=== PATIENT | male | born 1950 | race Two or more races ===

== ENCOUNTER 2020-04-09 22:03 | Inpatient (IN) | payer OTHER, MEDICAID ==
[~2020-04-09] VITALS: Ht 172.7 cm; Wt 68.2 kg
[2020-04-09 23:14] LABS: Basophils # (auto) 0.1 10 ^3/uL (0-0.2); Eosinophils # (auto) 0.5 10 ^3/uL (0-0.8); Eosinophils % (auto) 5.3 % (0.0-7.0); Hematocrit 44.1 % (41.0-53.0); Hemoglobin 14.1 g/dL (13.5-17.5); Lymphocytes # (auto) 1.1 10 ^3/uL (0.4-5.4); Lymphocytes % (auto) 12.5 % (10.0-50.0); Mean Corpuscular Hemoglobin 27.1 pg (28.0-32.0); Mean Corpuscular Hgb Conc. 32.1 g/dL (32.0-36.0); Mean Corpuscular Volume 84.6 fL (80.0-100.0); Monocytes # (auto) 0.5 10 ^3/uL (0-1.3); Neutrophils # (auto) 6.6 10 ^3/uL (1.6-8.6); Neutrophils % (auto) 75.2 % (37.0-80.0); Nucleated Red Blood Cells % 0.1 %; Platelet Count (auto) 204 10^3/uL (140-450); Red Blood Cells 5.21 10^6/uL (4.5-5.90); Red Cell Distribution Width 15.2 % (11.8-14.3); White Blood Cell 8.7 10^3/uL (4.4-10.8)
[2020-04-09 23:36] LABS: Chloride 109 mmol/L (98-107); Potassium 3.6 mmol/L (3.5-5.1); Sodium 140 mmol/L (136-145)
[2020-04-09 23:39] LABS: INR 1.04 (0.9-1.15); Partial Thromboplastin Time 25.4 sec (23.0-31.2)
[2020-04-09 23:41] LABS: Albumin 3.6 g/dL (3.4-5.0); Anion Gap 6 (5-15); BUN/Creatinine Ratio 18.3; Blood Urea Nitrogen 21 mg/dL (7-18); Calcium 8.6 mg/dL (8.5-10.1); Carbon Dioxide 25 mmol/L (21-32); GFR African American 82 mL/min; GFR Non-African American 67 mL/min; Glucose 114 mg/dL (74-106)
[2020-04-09 23:46] LABS: Alanine Aminotransferase 33 U/L (16-61); Alkaline Phosphatase 63 U/L (45-117); Aspartate Aminotransferase 21 U/L (15-37); Bilirubin, Total 0.6 mg/dL (0.2-1.0); Total Protein 7.1 g/dL (6.4-8.2)
[2020-04-10] MEDS ORDERED: DOCUSATE SOD 100 MG CAP PO PRN (04:15)
[2020-04-10] MEDS ORDERED: ACETAMINOPHEN 325 MG TAB PO PRN (04:15)
[2020-04-10] MEDS ORDERED: HYDROcodone-ACET 5/325MG TAB PO PRN (04:15)
[2020-04-10] MEDS ORDERED: NITROGLYCERIN 0.4 MG SL TAB SL PRN (04:15)
[2020-04-10] MEDS ORDERED: ONDANSETRON HCL 4 MG/2 ML VIAL IV PRN (04:15)
[2020-04-10] MEDS ORDERED: MORPHINE SULF INJ 2 MG/ML SYRINGE 1ML IV PRN ×2 (04:15→15:00)
[2020-04-10] MEDS ORDERED: MORPHINE SULFATE 4 MG/ML SYR/VIAL IV PRN (04:15)
[2020-04-10] MEDS: SODIUM CHLOR 0.9% PF (SALINE LOCK) 10ML VIAL/SYR IV SCH ×3 (06:00→22:00)
[2020-04-10 06:21] LABS: Basophils # (auto) 0.1 10 ^3/uL (0-0.2); Eosinophils # (auto) 0.1 10 ^3/uL (0-0.8); Monocytes # (auto) 0.6 10 ^3/uL (0-1.3)
[2020-04-10 06:24] LABS: Eosinophils % (auto) 1.6 % (0.0-7.0); Hematocrit 42.6 % (41.0-53.0); Lymphocytes % (auto) 11.8 % (10.0-50.0); Mean Corpuscular Hemoglobin 27.1 pg (28.0-32.0); Mean Corpuscular Hgb Conc. 32.8 g/dL (32.0-36.0); Mean Corpuscular Volume 82.7 fL (80.0-100.0); Monocytes % (auto) 7.1 % (0.0-12.0); Neutrophils # (auto) 6.5 10 ^3/uL (1.6-8.6); Neutrophils % (auto) 78.5 % (37.0-80.0); Platelet Count (auto) 215 10^3/uL (140-450); Red Blood Cells 5.15 10^6/uL (4.5-5.90); Red Cell Distribution Width 14.8 % (11.8-14.3); White Blood Cell 8.2 10^3/uL (4.4-10.8)
[2020-04-10 06:46] LABS: Albumin 3.5 g/dL (3.4-5.0); Calcium 9.1 mg/dL (8.5-10.1); Potassium 4.3 mmol/L (3.5-5.1)
[2020-04-10 06:52] LABS: BUN/Creatinine Ratio 21.5; Bilirubin, Total 0.6 mg/dL (0.2-1.0); Total Protein 6.7 g/dL (6.4-8.2)
[2020-04-10] MEDS ORDERED: MULTIPLE VITAMIN TAB PO SCH (10:00)
[2020-04-10] MEDS ORDERED: ENOXAPARIN SOD 40 MG/0.4 ML SYRINGE SC SCH (10:00)
[2020-04-10] MEDS ORDERED: ZINC SULFATE 220mg CAP or TAB PO SCH (10:00)
[2020-04-10] MEDS ORDERED: ASCORBIC ACID 500 MG TAB PO SCH (10:00)
[2020-04-10] MEDS: FAMOTIDINE 20 MG TAB PO SCH ×2 (11:08→23:27)
--- NOTE | 2020-04-10 14:42 | NUR ---
Telemetry admit from ER [facility] admitted to Telemetry unit after SBAR received. Patient oriented to Melly Wilson primary RN, unit, room, bed, and unit policies regarding patient care and visiting hours. Patient now on continuous telemetry monitoring, tele box #36 and telemetry reading on arrival to unit is SR. Instructed patient on POC, fall precautions and to call for assistance as needed. patient verbalized understanding. Fall precautions in place with call light within reach.
[2020-04-10 17:04] VITALS: BP 151/76
[2020-04-10 18:28] VITALS: BP 148/80
--- NOTE | 2020-04-10 18:59 | NUR ---
Closing note Patient resting in bed with even and unlabored respirations on room air, no distress noted. Fall precautions in place with call light within reach; bed alarm on for safety.
--- NOTE | 2020-04-10 19:13 | NUR ---
Care endorsed to JO ANN Tran.
--- NOTE | 2020-04-10 20:00 | NUR ---
Opening Shift Note Assumed care of patient, awake and alert. No S/S of distress/SOB or pain. Instructed on POC and to call for assist PRN, will continue to monitor for changes Q1hr and PRN. Bed in low position. Call light in reach.
[2020-04-10 22:00] VITALS: BP 134/83
[2020-04-10] MEDS ORDERED: LORazepam 2MG/ML-1ML VIAL IV PRN (22:30)
--- NOTE | 2020-04-10 23:00 | NUR ---
Dr. Vegas at patient's bedside. Patient's daughter called and states she and her family are from [place]. She needs to return to work and needs her father discharged by tomorrow. Per Dr. Vegas, patient needs to be further evaluated by [facility] before he is released. Daughter states she will be here tomorrow to discuss taking her father AMA to catch an airline flight back to [place].
[2020-04-11 04:34] VITALS: BP 127/82
[2020-04-11] MEDS: SODIUM CHLOR 0.9% PF (SALINE LOCK) 10ML VIAL/SYR IV SCH (06:00)
[2020-04-11 06:01] LABS: Basophils # (auto) 0.1 10 ^3/uL (0-0.2); Eosinophils # (auto) 0.5 10 ^3/uL (0-0.8); Hemoglobin 14.1 g/dL (13.5-17.5); Lymphocytes # (auto) 1.3 10 ^3/uL (0.4-5.4); Neutrophils # (auto) 4.9 10 ^3/uL (1.6-8.6); Nucleated Red Blood Cells % 0.1 %; Platelet Count (auto) 214 10^3/uL (140-450)
[2020-04-11 06:04] LABS: Potassium 3.7 mmol/L (3.5-5.1)
[2020-04-11 06:06] LABS: Basophils % (auto) 1.1 % (0.0-2.0); Eosinophils % (auto) 6.8 % (0.0-7.0); Hematocrit 42.5 % (41.0-53.0); Lymphocytes % (auto) 17.6 % (10.0-50.0); Mean Corpuscular Hemoglobin 27.3 pg (28.0-32.0); Mean Corpuscular Hgb Conc. 33.1 g/dL (32.0-36.0); Mean Corpuscular Volume 82.4 fL (80.0-100.0); Monocytes # (auto) 0.7 10 ^3/uL (0-1.3); Neutrophils % (auto) 65.5 % (37.0-80.0); Red Blood Cells 5.16 10^6/uL (4.5-5.90); Red Cell Distribution Width 14.7 % (11.8-14.3); White Blood Cell 7.4 10^3/uL (4.4-10.8)
[2020-04-11 06:11] LABS: Albumin 3.4 g/dL (3.4-5.0); BUN/Creatinine Ratio 17.4; Bilirubin, Total 0.7 mg/dL (0.2-1.0); Calcium 8.6 mg/dL (8.5-10.1); Total Protein 6.7 g/dL (6.4-8.2)
--- NOTE | 2020-04-11 07:00 | NUR ---
Patient resting comfortably. No distress. Report given to JO ANN Pickard.
--- NOTE | 2020-04-11 07:50 | NUR ---
Morning note Patient resting in bed with even and unlabored respirations on room air, no distress noted. Instructed patient on POC, fall precautions and to call for assistance as needed. Patient verbalized understanding. fall precautions in place with call light within reach; bed alarm on for safety.
--- NOTE | 2020-04-11 08:05 | NUR ---
RE: activity Bed alarm sounded. Patient attempting to exit bed. Educated patient on the need to contact staff prior to exiting bed d/t high fall risk. Patient verbalized understanding. Patient transferred to [facility] with standby assistance provided by staff member. Patient returned to bed with no complications. Call light within reach; bed alarm on for safety.
--- NOTE | 2020-04-11 08:10 | NUR ---
Family called for update Patient's daughter, Jacqui, called for an update. Password obtain. Update provided. Jacqui stated "We are from [place]. We are flying back home tomorrow morning. I am planning on having him follow up with his primary doctor right when we get back into town." Informed Jacqui patient has not been discharged and is being evaluated by MD's. Jacqui verbalized understanding.
--- NOTE | 2020-04-11 08:43 | NUR ---
RE: AMA Patients daughter is requesting patient be released. Advised Jacqui that patient is not discharged. Patients daughter requesting patient go AMA. This RN spoke with patient. Patient alert & oriented; knows name/, place, situation, year. Patient stated "Yes, I want to go. I'm going to sign the paper and then go back home to [place] to my doctors. I feel fine." Paged Dr. Galeana to notify.
--- NOTE | 2020-04-11 08:48 | NUR ---
Notified Dr. Galeana of patient leaving AJITH BATRES verbalized understanding.
--- NOTE | 2020-04-11 08:59 | NUR ---
RE: AMA Patient has read and signed for leaving the hospital AMA or treatment documentation. Patient has been advised of the risks of leaving AMA. Patient verbalized understanding. Patients daughter, Jacqui, has been advised of the risks of the patient leaving AMA. Jacqui verbalized understanding. IV removed with aseptic technique, catheter intact. Dressing applied. Patient tolerated well, no trauma to site. Telemonitor removed and returned. No distress noted. ETA of Jacqui is 10-15 minutes.
--- NOTE | 2020-04-11 09:45 | NUR ---
Patient transferred to private vehicle via wheelchair accompanied by staff member. No distress noted. Patient reports having all personal belongings.
[2020-04-11] MEDS ORDERED: ASPirin-EC 81 mg tab PO SCH (10:00)
[2020-04-11] MEDS ORDERED: ATORVASTATIN 20 MG TAB PO SCH (22:00)
== END 2020-04-11 09:45 | disposition left against medical advice (07) | DRG 57 ==
LOC: EDBD 22:03 → ER 22:13 → TELE 22:14 → TELE-CENTR 04-10 14:46
PROVIDERS: ADMIT Nurse Practitioner Family; ATTEND Internal Medicine Pulmonary Disease
DX: I69.398 Other sequelae of cerebral infarction (principal); J98.11 Atelectasis; G93.89 Other specified disorders of brain; R55 Syncope and collapse; I10 Essential (primary) hypertension; F17.200 Nicotine dependence, unspecified, uncomplicated; Z79.82 Long term (current) use of aspirin; Z79.899 Other long term (current) drug therapy; Z80.3 Family history of malignant neoplasm of breast; Z82.49 Family history of ischemic heart disease and other diseases of the circulatory system; Z53.29 Procedure and treatment not carried out because of patient's decision for other reasons; I69.319 Unspecified symptoms and signs involving cognitive functions following cerebral infarction
CPT/HCPCS: 36415; 70450; 71045; 80053; 80061; 83735; 83880; 84443; 84484; 85025; 85610; 85730; 93005; 96372; 96374; G0378